=== PATIENT | male | born 1980 | race Caucasian/White ===

== ENCOUNTER 2021-03-20 19:16 | Inpatient (IN) | payer BC, SELFPAY ==
[2021-03-20] VITALS (8 sets, daily range): BP systolic 120–151; BP diastolic 80–91; PULSE 110–132; RESP 22–39; TEMP 37.6; O2SAT 87–95
--- NOTE | ~2021-03-20 | XR_ITS ---
EXAMINATION: XR chest 1V portable DATE: 03/20/2021 21:48 INDICATION: Shortness of breath. Fever and chills. COVID-19 positive. TECHNIQUE: A single frontal view of the chest was obtained. COMPARISON: None. FINDINGS: There are patchy airspace opacities in all lung zones bilaterally with relative sparing of left lung apex. No pleural effusion or pneumothorax. The heart size is normal. IMPRESSION: 1. Diffuse lung disease, consistent with COVID-19 pneumonia. Reviewed, dictated and finalized at location A. TAL MARKETING OFFICER
--- NOTE | ~2021-03-20 | XR_ITS ---
EXAMINATION: XR chest 1V portable DATE: 03/27/2021 15:54 INDICATION: Pneumonia and cough TECHNIQUE: frontal view of the chest was obtained. COMPARISON: Chest radiograph dated 03/23/2021 FINDINGS: There is been some interval decrease in the patchy airspace opacities in the bilateral mid and lower lung zones which appear to have coalesced into more thickened bandlike opacities. No new airspace opa cities, pleural effusion or pneumothorax. The cardiomediastinal silhouette is normal. Visualized bone s and soft tissues are unremarkable. IMPRESSION: 1. Continued decrease in bilateral airspace opacity, likely improving COVID pneumonia. Reviewed, dictated and finalized at location B. UM PAN OPERATOR IMPRESSION: 1. Continued decrease in bilateral airspace opacity, likely improving COVID pne umonia.
--- NOTE | ~2021-03-20 | CT_ITS ---
EXAMINATION: CTA chest PE protocol DATE: 03/20/2021 23:16 INDICATION: Shortness of breath. COVID-19 pneumonia. TECHNIQUE: Computed tomography angiography (CTA) of the chest was performed with 100 mL Omnipaque-350 intravenous contrast timed to evaluate the pulmonary arteries. Coronal maximum intensity projection 3D-reconstructions were created by the technologist. Automated exposure control and iterative reconst ruction technique were employed. The dose-length product was 577.82 mGy-cm. COMPARISON: Chest single view 03/20/2021 FINDINGS: There are patchy airspace and groundglass opacities involving all lobes. No pleural effusio n. The heart size is normal. No pericardial effusion. There is mild mediastinal lymphadenopathy. Ther e is no pulmonary embolus. There is mild thoracic spondylosis. There is a benign bone island in T3 ve rtebral body. IMPRESSION: 1. No pulmonary embolus. Sensitivity is mildly decreased by motion artifact. 2. Diffuse lung disease, consistent with COVID-19 pneumonia. 3. Mild mediastinal lymphadenopathy, likely reactive. Reviewed, dictated and finalized at location A. BALANCER
--- NOTE | ~2021-03-20 | XR_ITS ---
EXAMINATION: XR chest 1V portable DATE: 03/23/2021 09:11 INDICATION: COVID TECHNIQUE: frontal view of the chest was obtained. COMPARISON: Chest radiograph and CT dated 03/20/2021 FINDINGS: Again seen are bilateral patchy airspace opacities which appear slightly improved compared with the p rior study. No pleural effusion or pneumothorax. The cardiomediastinal silhouette is within normal li mits for AP technique. IMPRESSION: 1. Slight improvement in bilateral patchy airspace opacities likely related to COVID pneumonia. Reviewed, dictated and finalized at location A. STITCH TOPSTITCHER
--- NOTE | 2021-03-20 21:31 | ECG_ITS ---
Measurements Intervals [place] Rate: 126 P: 20 WI: 114 QRS: 28 QRSD: 76 T: -5 QT: 276 QTc: 400 Interpretive Statements SINUS TACHYCARDIA WITH SHORT WI INTERVAL BORDERLINE T WAVE ABNORMALITY- ANTEROLAT/INF LEADS BASELINE ARTIFACT- II, III, AVF ABNORMAL ECG Electronically Signed On 03-21-2021 6:33:43 DRY WALL INSTALLATIONS MECHANIC by Riky Kim D.O.
--- NOTE | 2021-03-20 21:43 | ED.SOB ---
HPI - SOB/Dyspnea General Chief Complaint: Shortness of Breath/Dyspnea Stated Complaint: Covid +....SOB Time Seen by Provider: 03/20/21 21:40 Source: patient Mode of arrival: ambulatory Limitations: no limitations History of Present Illness HPI Narrative: Patient is a 41-year-old male complaining of shortness of breath accompanied by cough, fever, body aches that started 1 week ago. Patient states that he tested positive for Covid this past Thursday was seen and treated at [facility], was discharged on oral antibiotic and steroid. Patient states that his symptoms is worse today especially his shortness of breath. Related Data Home Medications Medication Instructions Recorded Confirmed Lexapro 03/20/21 Allergies Allergy/AdvReac Type Severity Reaction Status Date / Time No Known Allergies Allergy Verified 03/20/21 19:54 Review of Systems Review of Systems: All systems reviewed & are unremarkable except as noted in HPI and below Constitutional: Constitutional: Denies excessive sweating, Denies fatigue, Denies headache(s), Denies lethargy, Denies weakness and Denies weight loss Eyes: Eyes: Denies blurry vision, Denies change in vision and Denies loss of vision ENT: Denies dizziness, Denies ear discharge, Denies headache(s), Denies lip swelling, Denies epistaxis, Denies nasal congestion, Denies neck pain, Denies throat swelling and Denies tongue swelling Cardiovascular: Cardiovascular: Denies chest pain, Denies chest pain at rest, Denies chest pain with activity, Denies diaphoresis, Denies rapid heart rate, Denies edema, Denies irregular heart rhythm, Denies lightheadedness and Denies palpitations Respiratory: Respiratory: Denies chest congestion and Denies hemoptysis Gastrointestinal: Gastrointestinal: Denies abdominal pain, Denies melena, Denies hematochezia, Denies diarrhea, Denies nausea, Denies vomiting and Denies hematemesis Musculoskeletal: Musculoskeletal: Denies abnormal gait, Denies deformity, Denies joint swelling, Denies limited range of motion, Denies neck pain and Denies numbness Neurologic: Denies Abnormal speech present, Denies abnormal gait, Denies confusion, Denies dizziness, Denies headache(s), Denies focal weakness, Denies loss of vision, Denies numbness, Denies Other visual disturbances, Denies Sensory deficit (Neuro) and Denies weakness Psychiatric: Psychiatric: Denies confusion, Denies depression, Denies auditory hallucinations, Denies homicidal ideation and Denies suicidal ideation Endocrine: Endocrine: Denies cold intolerance, Denies excessive sweating, Denies fatigue, Denies heat intolerance and Denies palpitations Hematologic/Lymphatic: Hematologic/Lymphatic: Denies easy bleeding and Denies easy bruising Allergic/Immunologic: Allergic/Immunologic: Denies lip swelling, Denies throat swelling and Denies tongue swelling Exam Const: General: ill appearing Orientation/consciousness: oriented to person, oriented to place, oriented to time, patient oriented x3 and No confusion Limitations: no limitations Other: Moderate distress HENMT: Head: normal to inspection, normocephalic and atraumatic Ears: hearing grossly normal bilaterally, TM normal on the right and TM normal on the left General nose exam: Normal external nose present, Normal nares present and No nasal discharge present Face and sinus: normal facial exam Mouth: Yes Normal oral and palatal mucosa present, Yes lip normal, Yes tongue normal and Yes oropharynx normal Throat: posterior oropharynx normal, tonsils normal and uvula midline Eyes: General: appearance normal, both eyes and all related structures Pupils: Equal, round and reactive pupils present EOM: EOMs intact bilaterally Neck: Neck: normal visual inspection, full ROM, no lymphadenopathy and no meningeal signs Chest: Chest palpation & inspection: normal inspection of the chest Resp: Effort & Inspection: normal respiratory effort and able to speak in complete sentences Auscultatio
[2021-03-20] MEDS: ALBUTEROL SULFATE NEB 2.5 MG/0.5 ML INH 5 MG INHALATION (21:56)
[2021-03-20] MEDS: IPRATROPIUM BR 0.02% INH SOLN 0.5 MG/2.5 ML VIAL INHALATION (21:56)
[2021-03-20 22:05] LABS: Base Excess ABG 0.5 mEq/l (+/-2.0); Fractional Inspired Oxygen 40 %; HCO3 ABG 22.5 mEq/l (22.0-26.0); Methemoglobin ABG 0.2 %THb (0-1.5); Oxygen Content ABG 18.1 %vol (16.0-22.0); Oxyhemoglobin 90.1 % THb (90.0-100.0); PCO2 ABG 29.3 mmHg (35.0-45.0); PO2 ABG 53.5 mmHg (80.0-100.0); PO2 FiO2 Ratio Arterial Blood 1.34 %; Reduced Hemoglobin 9.7 %THb (0-5.0); Total Hemoglobin 14.3 g/dL (12.0-18.0)
[2021-03-20 22:06] LABS: Device NASAL CANNULA; Modified Allen's Test Pass; Site Drawn LEFT RADIAL; pH ABG 7.503 (7.350-7.450)
[2021-03-20] MEDS: DEXAMETHASONE SOD PHOS INJ 4 MG/ML VIAL 10 MG IV PUSH (22:11)
[2021-03-20 22:18] LABS: Basophils Percent Auto 0.1 % (0.2-1.2); Hematocrit 43.2 % (42.0-52.0); Hemoglobin 14.4 g/dL (14.0-18.0); Immature Granulocyte Absolute 0.11 K/mm3 (0.00-0.031); Immature Granulocyte Percent A 0.8 % (0-0.5); Lymphocytes Absolute Auto 0.52 K/mm3 (0.9-3.2); Lymphocytes Percent Auto 3.9 % (18.3-44.2); Mean Corpuscular HGB Conc 33.3 g/dl (32-36); Mean Corpuscular Hemoglobin 30.7 pg (26-34); Mean Corpuscular Volume 92.1 fl (80-100); Mean Platelet Volume 8.6 fl (7.4-10.4); Monocytes Absolute Auto 0.6 K/mm3 (0.1-0.6); Monocytes Percent Auto 4.5 % (2.6-8.5); Neutrophils Absolute Auto 12.2 K/mm3 (1.3-6.7); Neutrophils Percent Auto 90.7 % (45.5-73.1); Platelet Count Result 368 k/mm3 (150-375); Red Blood Count 4.69 M/mm3 (4.6-6.20); Red Cell Distribution Width 12.6 % (11.5-14.5); White Blood Count 13.5 K/mm3 (4.5-10.0)
[2021-03-20 22:31] LABS: Alanine Aminotransferase 81 U/L (4-50); Albumin Level 4.3 g/dL (3.5-5.1); Alkaline Phosphatase 68 U/L (38-126); Anion Gap 13 mmol/L (8-16); Aspartate Amino Transferase 72 U/L (17-59); Bilirubin,Total 0.4 mg/dL (0.2-1.3); Blood Urea Nitrogen 17 mg/dL (9-20); Calcium 9.3 mg/dL (8.4-10.2); Carbon Dioxide 25 mmol/L (22-30); Chloride 100 mmol/L (98-107); Estimated CRCL calculation 88 ml/min; Estimated Glomerular Filt Rate > 60; Glucose 118 mg/dL (65-110); Potassium 4.1 mmol/L (3.4-5.0); Sodium 138 mmol/L (137-145)
[2021-03-20 22:31] LABS: Prothrombin Time 12.6 Seconds (11.1-14.7)
[2021-03-20 22:32] LABS: Partial Thromboplastin Time 30.9 SECONDS (22.3-36.8)
[2021-03-20 22:34] LABS: Lactic Acid Reflex 2.4 mmol/L (0.7-2.1)
[2021-03-20 22:35] LABS: D Dimer 0.74 ug/mL (<0.48)
[2021-03-20 22:40] LABS: NT Pro B Type Natriuretic Pept 403 pg/mL (5-100)
[2021-03-20] MEDS: ACETAMINOPHEN 325 MG TABLET 650 MG PO (22:52)
[2021-03-20] MEDS: LACTATED RINGERS 1,000 ML 150 ML IV CONT (22:53)
[2021-03-20] MEDS: ONDANSETRON INJ 4 MG/2 ML VIAL IV PUSH (22:53)
[2021-03-21] VITALS (12 sets, daily range): BP systolic 115–133; BP diastolic 70–86; PULSE 80–109; RESP 18–39; TEMP 36.3–37.1; O2SAT 81–97; BMI 34.4
[2021-03-21 01:15] LABS: Reflex Lactic Acid Yes or No Add Lactic
--- NOTE | 2021-03-21 02:15 | ADMGEN ---
This patient, Jono Craven, was admitted to [facility] Surg Room 320-01. Patient/family oriented to hospital policies and general routines including ID bracelet, bed and alarms, visiting hours, pain management, procedures, bathroom and other care routines, personal items, smoking policy, room service/diet, and visiting hours. Information on how to activate the Rapid Response Team has been discussed. Patient/Family are encouraged to report perceived risks to care and to ask questions if they do not understand what they are told or what they should do.
--- NOTE | 2021-03-21 02:15 | PM.IMHP ---
H&P: HPI History of Present Illness Date/Time: 03/21/21 02:15 Chief Complaint: COVID shortness of breath Narrative: Patient is a 41-year-old male who presents to the ED today with the worsening shortness of breath. He states that he started getting sick about a week ago with cough fever body aches. He went to [facility] ER where he was tested positive for COVID and was sent home on oral antibiotic and steroid. He has been taking those medication however his symptoms continued to get worse with worsening shortness of breath and hence came to the ED for evaluation. He reports mild on and off fever cough with clear expect duration. He also reports loss of taste. In the ED evaluation he was noted to have mild leukocytosis of 13.5 elevated D-dimer elevated lactic acidosis at 2.4 mildly elevated transaminases and elevated BNP at 4:03 a.m.. ABG showed respiratory alkalosis he was noted to be hypoxic in low 80s on room air on arrival to the ED and was placed on 4 L oxygen and maintain his oxygen saturation at 90-94%. He had been given DuoNeb treatment and Decadron 10 mg IV which relieved his shortness of breath. Because of his elevated D-dimer a CTA was done which was negative for PE but positive for diffuse lung disease consistent with COVID pneumonia. Given the setting is admitted for further evaluation and management. Review of Systems Review of Systems: - CONSTITUTIONAL: Denies weight loss, reports fever and chills. - HEENT: Denies changes in vision and hearing - RESPIRATORY: Reports SOB and cough. - CV: Denies palpitations and CP. - GI: Denies abdominal pain, nausea, vomiting and diarrhea. - : Denies dysuria and urinary frequency. - MSK: Reports myalgia and denies joint pain. - SKIN: Denies rash and pruritus. - NEUROLOGICAL: Reports headache and denies syncope. - PSYCHIATRIC: Denies recent changes in mood. Denies anxiety and depression. All systems reviewed & are unremarkable except as noted in HPI and below Constitutional: Constitutional: Reports fatigue and Reports weakness Neurologic: Reports weakness Endocrine: Endocrine: Reports fatigue Meds Home Medications and Allergies Home Medications Medication Instructions Recorded Confirmed Type Lexapro 03/20/21 History Allergies Allergy/AdvReac Type Severity Reaction Status Date / Time No Known Allergies Allergy Verified 03/20/21 19:54 Vital Signs Vital Signs - 24 hr 03/20/21 19:20 03/20/21 19:49 03/20/21 21:29 Temperature 99.7 F H Pulse Rate 115 H 110 H Respiratory Rate 26 H Blood Pressure 147/83 H Pulse Oximetry 87 L 93 03/20/21 21:30 03/20/21 22:00 03/20/21 22:10 Temperature Pulse Rate 110 H 117 H 132 H Respiratory Rate 22 H 26 H 39 H Blood Pressure 151/91 H 120/80 Pulse Oximetry 93 95 03/20/21 22:14 03/20/21 22:53 03/21/21 00:20 Temperature Pulse Rate 127 H 126 H 109 H Respiratory Rate 33 H 28 H 25 H Blood Pressure 144/82 H 130/80 Pulse Oximetry 90 93 03/21/21 01:12 Temperature Pulse Rate 101 H Respiratory Rate 39 H Blood Pressure 121/83 Pulse Oximetry 93 Exam Narrative: GENERAL: The patient is well developed, not in acute distress HEENT: Nonicteric sclerae, PERRLA, EOMI. Oropharynx clear. Moist mucous membranes. Conjunctivae appear well perfused. CHEST: Chest wall is nontender. HEART: Regular rate and rhythm without murmur, rubs, or gallops LUNGS: Coarse breath sounds bilaterally. Mildly tachypneic ABDOMEN: Soft, positive bowel sounds, non-tender, no organomegaly. SKIN: No rash, no excessive bruising, petechiae, or purpura. NEUROLOGIC: Cranial nerves II-XII intact, alert and oriented x 3, no gross motor deficits EXTREMITIES: no edema, cyanosis or clubbing H&P: Results Labs Labs: Short CBC 03/20/21 Range/Units 22:07 WBC 13.5 H (4.5-10.0) K/mm3 Hgb 14.4 (14.0-18.0) g/dL Hct 43.2 (42.0-52.0) % Plt Count 368 (150-375) k/mm3 [facility] 03/20/21 22:07 Sodium 138
[2021-03-21 02:38] LABS: Lactic Acid 1.5 mmol/L (0.7-2.1)
[2021-03-21] MEDS: REMDESIVIR 200 MG/NS 250 ML 200 MG/250 ML BAG 250 MG IVPB (03:35)
[2021-03-21 03:41] LABS: Lactic Acid Reflex 1.7 mmol/L (0.7-2.1)
[2021-03-21 03:46] LABS: Alanine Aminotransferase 91 U/L (4-50); Estimated CRCL calculation 98 ml/min; Estimated Glomerular Filt Rate > 60; Lactate Dehydrogenase 959 U/L (313-618)
[2021-03-21 04:01] LABS: CRP 20.5 mg/dL (<1.0)
[2021-03-21] MEDS: ACETAMINOPHEN 325 MG TABLET 650 MG PO ×3 (04:58→18:00)
[2021-03-21] MEDS: ENOXAPARIN 40 MG/0.4 ML SYRINGE SUB-Q (09:46)
--- NOTE | 2021-03-21 15:23 | PM.IMPN ---
Progress Note: A&P Assessment and Plan (1) Acute respiratory failure with hypoxemia: Code(s): J96.01 - Acute respiratory failure with hypoxia Status: Acute Assessment and Plan: Secondary to COVID-19 pneumonia. He is requiring 14 L per high-flow nasal cannula. CTA is negative for PE but does show diffuse lung disease consistent with COVID 19 pneumonia. Supplemental O2 as needed with goal saturations 92% or above. If he has worsened oxygen requirements, would need to transition to Airvo or BiPAP Patient is agreeable to intubation should this become necessary (2) Pneumonia due to COVID-19 virus: Code(s): U07.1 - COVID-19; J12.82 - Pneumonia due to coronavirus disease 2018 Status: Acute Assessment and Plan: Patient tested positive for COVID-19 on 03/16/2021 at [facility]. CXR shows diffuse lung disease. Continue supplemental O2 as described above Dexamethasone and remdesivir being continued. Given increased O2 demand, will add Baricitinib Monitor CBC, LFTs, renal function while on above therapy Supportive care to include bronchodilators, expectorants, antipyretics, incentive spirometry Trend inflammatory markers Patient has not been vaccinated for COVID-19 Will proceed with confirmatory COVID-19 test at this facility (3) Lactic acidosis: Code(s): E87.2 - Acidosis Status: Acute Assessment and Plan: Lactic acid levels elevated 2.4 on presentation. Likely related to dehydration from acute illness. He did receive 1 L of IV fluids. Lactic acid has normalized since. No further IV fluids as the patient appears euvolemic and is tolerating oral intake. (4) Leukocytosis: Code(s): D72.829 - Elevated white blood cell count, unspecified Status: Acute Assessment and Plan: Likely secondary to recent steroid use. He was prescribed a course of steroids at outside hospital upon diagnosis of COVID-19. Subjective Date/time seen: 03/21/21 15:23 Interval history: Date of service: 03/21/2021 Jono Craven is 41-year-old male with no prior medical history who is seen in follow-up for COVID-19 pneumonia. He is feeling a little bit better today than compared to presentation but overall still feeling poorly. He endorses shortness of breath and dyspnea on exertion. He is having difficulty getting up and walking to the bathroom. He has a mild cough productive of clear sputum. Denies nausea, vomiting, fever, chills, dizziness, lightheadedness. His appetite is poor and he has lost his sense of taste and smell. He reports that he is drinking fluids. He is feeling a little bit anxious today. He denies chest pain or palpitations. He has a mild headache. Denies body aches. Review of Systems Review of Systems: All systems reviewed & are unremarkable except as noted in HPI and below Exam Narrative: Mr. Craven is a well-nourished, well-appearing 41-year-old male who is lying semi recumbent in bed. He appears comfortable and is in NARD. Neuro: awake, alert and oriented x4, speech clear, no focal neuro deficits noted HEENMT: normocephalic, atraumatic, EOMI, sclerae anicteric, moist oral mucosa Neck: supple, no lymphadenopathy Respiratory: Diminished breath sounds bilaterally, nonlabored breathing, no accessory muscle use, able to speak in complete sentences Cardio: regular rate, regular rhythm with S1-S2 Abdomen: nondistended, normoactive bowel sounds, soft, nontender to palpation Extremities: no edema, erythema, or tenderness to palpation, DP pulses 2+ bilaterally Skin: no rashes or lesions, warm and dry Psych: appropriate mood and affect, judgment and insight intact Objective Data Vital Signs Vital Signs: Vital Signs - 24 hr 03/20/21 19:20 03/20/21 19:49 03/20/21 21:29 Temperature 99.7 F H Pulse Rate 115 H 110 H Respiratory Rate 26 H Blood Pressure 147/83 H Pulse Oximetry 87 L 93 03/20/21 21:30 03/20/21 22:00 03/20/21
[2021-03-21 15:50] LABS: Hematocrit 41.5 % (42.0-52.0); Hemoglobin 13.8 g/dL (14.0-18.0); Mean Corpuscular HGB Conc 33.3 g/dl (32-36); Mean Corpuscular Hemoglobin 30.8 pg (26-34); Mean Corpuscular Volume 92.6 fl (80-100); Mean Platelet Volume 8.4 fl (7.4-10.4); Platelet Count Result 395 k/mm3 (150-375); Red Blood Count 4.48 M/mm3 (4.6-6.20); Red Cell Distribution Width 12.7 % (11.5-14.5); White Blood Count 14.3 K/mm3 (4.5-10.0)
[2021-03-21 16:00] LABS: Alanine Aminotransferase 120 U/L (4-50); Aspartate Amino Transferase 95 U/L (17-59); Estimated CRCL calculation 98 ml/min; Estimated Glomerular Filt Rate > 60
[2021-03-21 16:06] LABS: Band Neutrophils Percent 3 % (0-6); Lymphocytes Absolute Manual 0.57 K/mm3 (1.1-4.5); Monocytes Absolute Manual 0.57 K/mm3 (0.1-0.90); Monocytes Percent Manual 4 % (3-9); Neutrophils Absolute Manual 13.15 K/mm3 (1.3-6.7); Neutrophils Percent Manual 89 % (46-73); Platelet Estimate Increased (Adequate); Total Cells Counted 100
[2021-03-21] MEDS: BARICITINIB 2 MG TABLET 4 MG PO (16:26)
[2021-03-21] MEDS: ESCITALOPRAM OXALATE 10 MG TABLET PO (16:27)
--- NOTE | 2021-03-21 23:35 | PM.EVENT ---
Event Note Event Note Event Note: The patient continued to desat even on 15 L non-rebreather and oxygen per nasal cannula. The patient stated that he coughed a lot and had a lot of thick phlegm. He believes this made him more short of breath. However at best his oxygen is between 89 and 90%. I spoke with the patient and feel that it is best to move him to IMU for an Airvo. I explained that he needs to self prone frequently. The patient is already on remdesivir and Decadron. Will add Mucinex if not already ordered.
[2021-03-22] VITALS (17 sets, daily range): BP systolic 111–125; BP diastolic 73–78; PULSE 68–92; RESP 20–24; TEMP 36.1–37.2; O2SAT 91–99
--- NOTE | 2021-03-22 02:53 | PC.NURSE ---
Patient transferred to IMU Room 213 @ [id number]. All belongings transferred with patient. Patient stated to on call pharmacy technician to notify in the morning with updates.
--- NOTE | 2021-03-22 03:19 | PC.NURSE ---
Recieved report from [facility] at 0150. Patient arrived to the floor in room 213 at 0230
--- NOTE | 2021-03-22 03:23 | PC.NURSE ---
This patient, Jono Craven, was received from [[address] [place] [address]] on 03/22/21 at 0230. Patient/family oriented to unit policies and routines
[2021-03-22] MEDS: ACETAMINOPHEN 325 MG TABLET 650 MG PO ×3 (03:42→17:40)
[2021-03-22 05:44] LABS: Basophils Percent Auto 0.2 % (0.2-1.2); Hematocrit 39.1 % (42.0-52.0); Hemoglobin 13.1 g/dL (14.0-18.0); Immature Granulocyte Absolute 0.15 K/mm3 (0.00-0.031); Lymphocytes Absolute Auto 0.59 K/mm3 (0.9-3.2); Mean Corpuscular HGB Conc 33.5 g/dl (32-36); Mean Corpuscular Hemoglobin 30.2 pg (26-34); Mean Corpuscular Volume 90.1 fl (80-100); Mean Platelet Volume 8.7 fl (7.4-10.4); Monocytes Absolute Auto 0.8 K/mm3 (0.1-0.6); Monocytes Percent Auto 5.7 % (2.6-8.5); Neutrophils Percent Auto 89.1 % (45.5-73.1); Platelet Count Result 433 k/mm3 (150-375); Red Blood Count 4.34 M/mm3 (4.6-6.20); Red Cell Distribution Width 12.5 % (11.5-14.5); White Blood Count 14.6 K/mm3 (4.5-10.0)
[2021-03-22 05:48] LABS: INR 1.1; Prothrombin Time 13.7 Seconds (11.1-14.7)
[2021-03-22 06:01] LABS: Alanine Aminotransferase 133 U/L (4-50); Albumin Level 3.9 g/dL (3.5-5.1); Alkaline Phosphatase 64 U/L (38-126); Anion Gap 10 mmol/L (8-16); Aspartate Amino Transferase 95 U/L (17-59); Bilirubin,Total 0.4 mg/dL (0.2-1.3); Blood Urea Nitrogen 27 mg/dL (9-20); CRP 8.5 mg/dL (<1.0); Calcium 8.8 mg/dL (8.4-10.2); Carbon Dioxide 25 mmol/L (22-30); Chloride 103 mmol/L (98-107); Estimated CRCL calculation 98 ml/min; Estimated Glomerular Filt Rate > 60; Glucose 139 mg/dL (65-110); Potassium 4.3 mmol/L (3.4-5.0); Sodium 138 mmol/L (137-145)
[2021-03-22] MEDS: ESCITALOPRAM OXALATE 10 MG TABLET PO (08:50)
[2021-03-22] MEDS: BARICITINIB 2 MG TABLET 4 MG PO (08:50)
[2021-03-22] MEDS: ENOXAPARIN 40 MG/0.4 ML SYRINGE SUB-Q (08:50)
--- NOTE | 2021-03-22 09:47 | PM.IMPN ---
Progress Note: A&P Assessment and Plan (1) Acute respiratory failure with hypoxemia: Code(s): J96.01 - Acute respiratory failure with hypoxia Status: Acute Assessment and Plan: Secondary to COVID-19 pneumonia. He is requiring 50% per high-flow nasal cannula.Arivo. CTA is negative for PE but does show diffuse lung disease consistent with COVID 19 pneumonia. Supplemental O2 as needed with goal saturations 92% or above. on Mucinex, Albuterol inhaler, on Baricitinib, Dexamethasone, Remdesivir. Glucose level today was 139. Check A1C in morning. If he has worsened oxygen requirements, would need to transition to BiPAP Patient is agreeable to intubation should this become necessary (2) Pneumonia due to COVID-19 virus: Code(s): U07.1 - COVID-19; J12.82 - Pneumonia due to coronavirus disease 2018 Status: Acute Assessment and Plan: Patient tested positive for COVID-19 on 03/16/2021 at [facility]. 03/20 CXR shows diffuse lung disease. Repeating CXR in the morning. Continue supplemental O2 as described above Dexamethasone and remdesivir being continued. Given increased O2 demand, will add Baricitinib Monitor CBC, LFTs, renal function while on above therapy Supportive care to include bronchodilators, expectorants, antipyretics, incentive spirometry Trend inflammatory markers Patient has not been vaccinated for COVID-19 Will proceed with confirmatory COVID-19 test at this facility (3) Lactic acidosis: Code(s): E87.2 - Acidosis Status: Acute Assessment and Plan: Lactic acid levels elevated 2.4 on presentation. Likely related to dehydration from acute illness. did receive 1 L of IV fluids. Lactic acid has normalized since. No further IV fluids as the patient appears euvolemic and is tolerating oral intake. RESOLVED. (4) Leukocytosis: Code(s): D72.829 - Elevated white blood cell count, unspecified Status: Acute Assessment and Plan: Likely secondary to recent steroid use. He was prescribed a course of steroids at outside hospital upon diagnosis of COVID-19. WBC 14.6 today, 14.3 yesterday. Stable. Additional Plan # acute hypoxic respiratory failure related to COVID pneumonia CTA negative for PE continue oxygen supplementation # bilateral COVID pneumonia Decadron and remdesivir ordered continue to monitor LFTs check inflammatory markers # equal cytosis recently was treated with steroid likely reason for it unlikely bacterial infection # lactic acidosis poor p.o. intake and dehydration related likely IV hydration. Fluid after 1 L recheck lactic acid level # elevated D-dimer CTA negative for PE likely due to COVID pneumonia # DVT prophylaxis Lovenox # full code status Subjective Date/time seen: 03/22/21 09:47 Interval history: Date of service: 03/22/2021 Jono Craven is 41-year-old male with no prior medical history who is seen in follow-up for COVID-19 pneumonia. He is feeling a little bit better today, sats 90-100% but still requiring 50% HF O2. He said that he was able to eat better today, pacing himself during meals to avoid dyspnea. He continues to have significant shortness of breath and dyspnea on exertion, even a short trip to the bathroom is too much. He continues to have a mild cough productive of clear sputum. Denies nausea, vomiting, fever, chills, dizziness, lightheadedness. His appetite is poor and he has lost his sense of taste and smell. He denies chest pain or palpitations. Denies body aches. He felt after his 2nd dose of IV antivirals today, that he was feeling like he had more energy this afternoon. Ordered daily ferritin, CRP, LDH levels with a CXR in the morning. Checking A1C in morning as well, no history of DM, glucose levels likely from Dexamethasone. Review of Systems Review of Systems: All systems reviewed & are unremarkable except as noted in HPI and below Constitutional: Constitutional: Reports as per HP
[2021-03-22] MEDS: REMDESIVIR 100 MG/NS 250 ML 100 MG/250 ML BAG 250 MG IVPB (10:44)
[2021-03-22 17:55] LABS: SARS-CoV-2 RNA PCR Positive
[2021-03-22] MEDS: guaiFENesin 12 HR 600 MG TABCR PO (22:32)
[2021-03-22] MEDS: ALBUTEROL SULFATE (*SP) INHALER 2 PUFF INHALATION (23:07)
[2021-03-23] VITALS (18 sets, daily range): BP systolic 104–126; BP diastolic 65–79; PULSE 60–86; RESP 18–24; TEMP 35.9–37.3; O2SAT 90–100
--- NOTE | 2021-03-23 01:51 | PC.NURSE ---
Pt stated during midnight rounds that he couldn't sleep due to the pressure from his hiflow therapy oxygen. Explained that the RT stated that nothing had changed as far as the pressure, and that he needed the pressure to keep his oxygen up. Also counseled pt to sleep on his stomach if at all possible or at least on his side. Called doctor to obtain order for melatonin to help pt sleep. Went into room at 0115 to admin melatonin, but pt was already asleep. Did not disturb patient at this time.
[2021-03-23] MEDS: ALBUTEROL SULFATE (*SP) INHALER 2 PUFF INHALATION ×4 (08:35→20:47)
[2021-03-23] MEDS: guaiFENesin 12 HR 600 MG TABCR PO ×2 (08:37→20:46)
[2021-03-23] MEDS: BARICITINIB 2 MG TABLET 4 MG PO (08:38)
[2021-03-23] MEDS: ESCITALOPRAM OXALATE 10 MG TABLET PO (08:39)
[2021-03-23] MEDS: ENOXAPARIN 40 MG/0.4 ML SYRINGE SUB-Q ×2 (08:39→20:46)
[2021-03-23 10:05] LABS: Alanine Aminotransferase 163 U/L (4-50); Anion Gap 12 mmol/L (8-16); Aspartate Amino Transferase 85 U/L (17-59); Blood Urea Nitrogen 28 mg/dL (9-20); CRP 5.7 mg/dL (<1.0); Calcium 8.6 mg/dL (8.4-10.2); Carbon Dioxide 20 mmol/L (22-30); Chloride 101 mmol/L (98-107); Estimated CRCL calculation 98 ml/min; Estimated Glomerular Filt Rate > 60; Glucose 116 mg/dL (65-110); Lactate Dehydrogenase 1321 U/L (313-618); Potassium 4.4 mmol/L (3.4-5.0); Sodium 133 mmol/L (137-145)
[2021-03-23 10:31] LABS: Basophils Percent Auto 0.2 % (0.2-1.2); Hematocrit 42.7 % (42.0-52.0); Hemoglobin 14.2 g/dL (14.0-18.0); Immature Granulocyte Percent A 1.6 % (0-0.5); Lymphocytes Percent Auto 4.7 % (18.3-44.2); Mean Corpuscular HGB Conc 33.3 g/dl (32-36); Mean Corpuscular Hemoglobin 30.6 pg (26-34); Mean Platelet Volume 8.6 fl (7.4-10.4); Monocytes Absolute Auto 0.9 K/mm3 (0.1-0.6); Neutrophils Absolute Auto 11.2 K/mm3 (1.3-6.7); Neutrophils Percent Auto 86.5 % (45.5-73.1); Platelet Count Result 467 k/mm3 (150-375); Red Blood Count 4.64 M/mm3 (4.6-6.20); Red Cell Distribution Width 12.4 % (11.5-14.5); White Blood Count 12.9 K/mm3 (4.5-10.0)
[2021-03-23 10:45] LABS: Prothrombin Time 13.4 Seconds (11.1-14.7)
--- NOTE | 2021-03-23 10:57 | PM.IMPN ---
Progress Note: A&P Assessment and Plan (1) Acute respiratory failure with hypoxemia: Code(s): J96.01 - Acute respiratory failure with hypoxia Status: Acute Assessment and Plan: Secondary to COVID-19 pneumonia. He is requiring 50% per high-flow nasal cannula.Arivo. CTA is negative for PE but does show diffuse lung disease consistent with COVID 19 pneumonia. Supplemental O2 as needed with goal saturations 92% or above. on Mucinex, Albuterol inhaler, on Baricitinib, Dexamethasone, Remdesivir. Date 3 Glucose level today was 139. Check A1C in morning. If he has worsened oxygen requirements, would need to transition to BiPAP Reviewed chest x-ray from held 03/23/2021 showed improvement in COVID-19 pneumonia Will give trial of IV Lasix (2) Pneumonia due to COVID-19 virus: Code(s): U07.1 - COVID-19; J12.82 - Pneumonia due to coronavirus disease 2018 Status: Acute Assessment and Plan: Patient tested positive for COVID-19 on 03/16/2021 at [facility]. 03/20 CXR shows diffuse lung disease. Repeating CXR in the morning. Continue supplemental O2 as described above Dexamethasone and remdesivir being continued. Given increased O2 demand, will add Baricitinib Continue supportive therapy (3) Lactic acidosis: Code(s): E87.2 - Acidosis Status: Acute Assessment and Plan: Lactic acid levels elevated 2.4 on presentation. Probably related to sepsis secondary to COVID-19 pneumonia Present on admission RESOLVED. (4) Leukocytosis: Code(s): D72.829 - Elevated white blood cell count, unspecified Status: Acute Assessment and Plan: Likely secondary to recent steroid use. Monitor Subjective Date/time seen: 03/23/21 10:57 Interval history: Jono Craven is 41-year-old male with no prior medical history who is seen in follow-up for COVID-19 pneumonia. Patient feels about the same y, sats 90-100% but still requiring 50% HF O2. Patient currently on dexamethasone remdisver barcitinib. Prognosis guarded Patient still complaining of shortness of breath and cough denies fever or chills I have seen patient for COVID-19 infection Exam Narrative: Alert On oxygen Chest decreased air entry bilateral positive crackles Abdomen nontender nondistended CVS S1 + S2 Lower extremity minimal edema Objective Data Vital Signs Vital Signs: Vital Signs - 24 hr 03/22/21 11:41 03/22/21 12:00 03/22/21 14:00 Temperature 98.8 F Pulse Rate 84 80 71 Respiratory Rate 20 Blood Pressure 122/78 Pulse Oximetry 99 94 03/22/21 16:00 03/22/21 17:17 03/22/21 18:00 Temperature 98.6 F Pulse Rate 71 73 80 Respiratory Rate 22 H Blood Pressure 117/78 Pulse Oximetry 94 91 03/22/21 19:48 03/22/21 20:00 03/22/21 22:00 Temperature 98.6 F Pulse Rate 68 72 81 Respiratory Rate 20 Blood Pressure 120/77 Pulse Oximetry 97 03/22/21 22:30 03/23/21 00:00 03/23/21 00:15 Temperature 97.6 F Pulse Rate 73 Respiratory Rate 22 H Blood Pressure 114/74 Pulse Oximetry 97 91 90 03/23/21 02:00 03/23/21 04:00 03/23/21 06:00 Temperature 97.2 F L Pulse Rate 67 86 82 Respiratory Rate 24 H Blood Pressure 118/76 Pulse Oximetry 90 03/23/21 08:00 03/23/21 08:52 03/23/21 08:57 Temperature 97.6 F Pulse Rate 68 Respiratory Rate 22 H Blood Pressure 122/76 Pulse Oximetry 90 91 95 Intake/Output Intake/Output: Intake & Output 03/20/21 03/21/21 03/22/21 03/23/21 23:59 23:59 23:59 23:59 Intake Total 2340 1070 850 Output Total 2600 925 300 Balance -260 145 550 Meds/Results Medications: Active Medications Generic Name Dose Route Start Last Admin Trade Name Freq PRN Reason Stop Dose Admin Acetaminophen 650 mg 03/21/21 02:24 03/22/21 17:40 Acetaminophen 325 Mg Tablet PO 650 mg Q6H PRN Administration Mild Pain (1-3) or Fever Albuterol 2 puff 03/22/21 23:05 03/23/21 08:35 Albuterol Sulfa
[2021-03-23 11:34] LABS: Hemoglobin A1C 5.8 % (<5.7)
[2021-03-23] MEDS: REMDESIVIR 100 MG/NS 250 ML 100 MG/250 ML BAG 250 MG IVPB (13:08)
[2021-03-24] VITALS (19 sets, daily range): BP systolic 112–125; BP diastolic 60–80; PULSE 49–75; RESP 20–24; TEMP 36.1–36.8; O2SAT 93–100
[2021-03-24 07:09] LABS: Basophils Percent Auto 0.3 % (0.2-1.2); Hematocrit 40.4 % (42.0-52.0); Hemoglobin 13.7 g/dL (14.0-18.0); Immature Granulocyte Absolute 0.22 K/mm3 (0.00-0.031); Immature Granulocyte Percent A 1.9 % (0-0.5); Lymphocytes Absolute Auto 0.95 K/mm3 (0.9-3.2); Lymphocytes Percent Auto 8.1 % (18.3-44.2); Mean Corpuscular HGB Conc 33.9 g/dl (32-36); Mean Corpuscular Hemoglobin 30.5 pg (26-34); Mean Platelet Volume 8.6 fl (7.4-10.4); Monocytes Absolute Auto 1.2 K/mm3 (0.1-0.6); Monocytes Percent Auto 10.3 % (2.6-8.5); Neutrophils Absolute Auto 9.3 K/mm3 (1.3-6.7); Neutrophils Percent Auto 79.4 % (45.5-73.1); Platelet Count Result 505 k/mm3 (150-375); Red Blood Count 4.49 M/mm3 (4.6-6.20); Red Cell Distribution Width 11.9 % (11.5-14.5); White Blood Count 11.7 K/mm3 (4.5-10.0)
[2021-03-24 07:17] LABS: Alanine Aminotransferase 180 U/L (4-50); Anion Gap 8 mmol/L (8-16); Aspartate Amino Transferase 73 U/L (17-59); Blood Urea Nitrogen 26 mg/dL (9-20); Calcium 8.4 mg/dL (8.4-10.2); Carbon Dioxide 27 mmol/L (22-30); Chloride 102 mmol/L (98-107); Estimated CRCL calculation 105 ml/min; Estimated Glomerular Filt Rate > 60; Glucose 120 mg/dL (65-110); Lactate Dehydrogenase 1001 U/L (313-618); Potassium 4.3 mmol/L (3.4-5.0); Sodium 137 mmol/L (137-145)
[2021-03-24 07:20] LABS: INR 1.1; Prothrombin Time 14.3 Seconds (11.1-14.7)
[2021-03-24] MEDS: ESCITALOPRAM OXALATE 10 MG TABLET PO (08:56)
[2021-03-24] MEDS: ENOXAPARIN 40 MG/0.4 ML SYRINGE SUB-Q ×2 (08:56→20:19)
[2021-03-24] MEDS: BARICITINIB 2 MG TABLET 4 MG PO (08:56)
[2021-03-24] MEDS: FUROSEMIDE INJ 40 MG/4 ML VIAL IV PUSH (08:56)
[2021-03-24] MEDS: ALBUTEROL SULFATE (*SP) INHALER 2 PUFF INHALATION ×4 (09:48→20:18)
[2021-03-24] MEDS: REMDESIVIR 100 MG/NS 250 ML 100 MG/250 ML BAG 250 MG IVPB (11:38)
[2021-03-24] MEDS: guaiFENesin 12 HR 600 MG TABCR PO ×2 (11:56→20:19)
--- NOTE | 2021-03-24 12:58 | PM.IMPN ---
Progress Note: A&P Assessment and Plan (1) Acute respiratory failure with hypoxemia: Code(s): J96.01 - Acute respiratory failure with hypoxia Status: Acute Assessment and Plan: Secondary to COVID-19 pneumonia. He is requiring 50% per high-flow nasal cannula.Arivo. CTA is negative for PE but does show diffuse lung disease consistent with COVID 19 pneumonia. Supplemental O2 as needed with goal saturations 92% or above. on Mucinex, Albuterol inhaler, on Baricitinib, Dexamethasone, Remdesivir. Date 4 Glucose level today was 120. A1C =5.8 If he has worsened oxygen requirements, would need to transition to BiPAP Reviewed chest x-ray from admission and yesterday 03/23/2021 showed improvement in COVID-19 pneumonia Continue all Antivirals today, ALT <200, repeating labs in morning, his day 5 of Remdesivir is tomorrow His O2 sats are 95-100% on 50 HF at FiO2 100%. Will try to wean today for the 1st time. His O2 was recently decreased to 90%FiO2 this afternoon (weaned Fio2 by 10%) (2) Pneumonia due to COVID-19 virus: Code(s): U07.1 - COVID-19; J12.82 - Pneumonia due to coronavirus disease 2019 Status: Acute Assessment and Plan: Patient tested positive for COVID-19 on 03/16/2021 at [facility]. 03/20 CXR shows diffuse lung disease. Repeating CXR in the morning. Continue supplemental O2 as described above, HIGH O2 100%FiO2 demand for first 4 days of admission. currently on Mucinex, Albuterol inhaler, on Baricitinib, Dexamethasone, and Remdesivir. Continue supportive therapy feels progressively better today, said that he slept well overnight and has more energy today. He is on day 4 of his antivirals. ALTs have increased from 81 to 180 today. This is may be due to the IV antivirals, history of alcohol, but may also be due to dehydration. Patient still complaining of shortness of breath and cough. Hope to continue both antivirals - since his last day of Remdesivir is tomorrow, and he has significant respiratory failure due to COVID infection. The antivirals are contributing to his improvement and respiratory recovery. His O2 sats are 95-100% on 50 HF at FiO2 100%. Will try to wean today for the 1st time. His O2 was recently decreased to 90%FiO2 this afternoon (weaned Fio2 by 10%) inflammatory markers continue to improve. CRP improved 20.5 to 5.7 today. AST stable from 72 to 73. LDH 959 to 1001 today. Ferritin 1140 improved to 862 today. CXR I ordered yesterday showed Slight improvement in bilateral patchy airspace opacities likely related to COVID pneumonia. (3) Lactic acidosis: Code(s): E87.2 - Acidosis Status: Acute Assessment and Plan: Lactic acid levels elevated 2.4 on presentation. Probably related to sepsis secondary to COVID-19 pneumonia Present on admission RESOLVED. (4) Leukocytosis: Code(s): D72.829 - Elevated white blood cell count, unspecified Status: Acute Assessment and Plan: Likely secondary to recent steroid use. Monitor with labs WBC improved from 12.9 to 11.7 today IMPROVING. Additional Plan # acute hypoxic respiratory failure related to COVID pneumonia CTA negative for PE continue oxygen supplementation # bilateral COVID pneumonia Decadron and remdesivir ordered continue to monitor LFTs check inflammatory markers # equal cytosis recently was treated with steroid likely reason for it unlikely bacterial infection # lactic acidosis poor p.o. intake and dehydration related likely IV hydration. Fluid after 1 L recheck lactic acid level # elevated D-dimer CTA negative for PE likely due to COVID pneumonia # DVT prophylaxis Lovenox # full code status Subjective Date/time seen: 03/24/21 12:58 Interval history: Jono Craven is 41-year-old male with no prior medical history who is seen in follow-up for COVID-19 pneumonia. He is a [employer] worker but admitted that he does breathe in a lot of dust, despite wearing his mask/vent
[2021-03-25] VITALS (20 sets, daily range): BP systolic 108–122; BP diastolic 59–85; PULSE 42–82; RESP 20–28; TEMP 36.3–37.1; O2SAT 92–99
[2021-03-25 06:33] LABS: Basophils Absolute Auto 0.1 K/mm3 (0.0-0.1); Basophils Percent Auto 0.4 % (0.2-1.2); Eosinophils Percent Auto 0.1 % (0-4.4); Hematocrit 43.2 % (42.0-52.0); Hemoglobin 14.5 g/dL (14.0-18.0); Immature Granulocyte Absolute 0.29 K/mm3 (0.00-0.031); Immature Granulocyte Percent A 2.1 % (0-0.5); Lymphocytes Percent Auto 8.5 % (18.3-44.2); Mean Corpuscular HGB Conc 33.6 g/dl (32-36); Mean Corpuscular Hemoglobin 30.9 pg (26-34); Mean Corpuscular Volume 91.9 fl (80-100); Mean Platelet Volume 8.5 fl (7.4-10.4); Monocytes Absolute Auto 0.9 K/mm3 (0.1-0.6); Monocytes Percent Auto 6.2 % (2.6-8.5); Neutrophils Absolute Auto 11.6 K/mm3 (1.3-6.7); Neutrophils Percent Auto 82.7 % (45.5-73.1); Platelet Count Result 521 k/mm3 (150-375); Red Cell Distribution Width 11.9 % (11.5-14.5); White Blood Count 14.1 K/mm3 (4.5-10.0)
[2021-03-25 06:45] LABS: Alanine Aminotransferase 205 U/L (4-50); Anion Gap 7 mmol/L (8-16); Aspartate Amino Transferase 62 U/L (17-59); Blood Urea Nitrogen 25 mg/dL (9-20); CRP 1.9 mg/dL (<1.0); Calcium 8.6 mg/dL (8.4-10.2); Carbon Dioxide 29 mmol/L (22-30); Chloride 98 mmol/L (98-107); Estimated CRCL calculation 106 ml/min; Estimated Glomerular Filt Rate > 60; Glucose 120 mg/dL (65-110); Lactate Dehydrogenase 859 U/L (313-618); Potassium 4.5 mmol/L (3.4-5.0); Sodium 134 mmol/L (137-145)
[2021-03-25 06:46] LABS: Prothrombin Time 13.3 Seconds (11.1-14.7)
[2021-03-25 07:20] LABS: Thyroid Stimulating Hormone Reflex 0.331 uIU/mL (0.465-4.68)
[2021-03-25 07:57] LABS: Free T4 Free Thyroxine Reflex 0.96 ng/dL (0.78-2.19)
[2021-03-25 08:38] LABS: Total Triiodothyronine (T3) 0.72 NG/ML (0.97-1.69)
[2021-03-25] MEDS: ALBUTEROL SULFATE (*SP) INHALER 2 PUFF INHALATION ×4 (08:47→20:42)
[2021-03-25] MEDS: BARICITINIB 2 MG TABLET 4 MG PO (09:21)
[2021-03-25] MEDS: ESCITALOPRAM OXALATE 10 MG TABLET PO (09:22)
[2021-03-25] MEDS: ENOXAPARIN 40 MG/0.4 ML SYRINGE SUB-Q (09:22)
[2021-03-25] MEDS: FUROSEMIDE INJ 40 MG/4 ML VIAL IV PUSH (09:22)
[2021-03-25] MEDS: guaiFENesin 12 HR 600 MG TABCR PO ×2 (09:22→21:30)
[2021-03-25] MEDS: REMDESIVIR 100 MG/NS 250 ML 100 MG/250 ML BAG 250 MG IVPB (11:26)
--- NOTE | 2021-03-25 12:34 | PM.IMPN ---
Progress Note: A&P Assessment and Plan (1) Acute respiratory failure with hypoxemia: Code(s): J96.01 - Acute respiratory failure with hypoxia Status: Acute Assessment and Plan: Secondary to COVID-19 pneumonia. He is requiring 35 L/min per high-flow nasal cannula with Airvo. CTA is negative for PE but does show diffuse lung disease consistent with COVID 19 pneumonia. Supplemental O2 as needed with goal saturations 92% or above. Tolerating Airvo well and O2 requirements have improved slightly. At 1 point required up to 55 L/min on Airvo If he were to have increased O2 demand beyond Airvo capacity, would need to transition to BiPAP. He is agreeable to intubation should this become necessary. (2) Pneumonia due to COVID-19 virus: Code(s): U07.1 - COVID-19; J12.82 - Pneumonia due to coronavirus disease 2019 Status: Acute Assessment and Plan: Patient tested positive for COVID-19 on 03/16/2021 at [facility]. Confirmatory test at this facility positive on 03/21/2021. Initial CXR with diffuse lung disease. Repeat CXR 03/23/2021 showed slight improvement in bilateral patchy airspace opacities. Supplemental O2 as noted above Continue dexamethasone day 6 Completed 5 days of IV remdesivir today. ALT elevated, though remdesivir has been discontinued. Continue to monitor LFTs Continue Baricitinib given increased O2 demand, day 5 today Supportive care to include bronchodilators, expectorants, antipyretics Improvement noted in inflammatory markers. Continue to trend intermittently He has not been vaccinated for COVID-19. Eligible for vaccine 90 days following acute illness (3) Lactic acidosis: Code(s): E87.2 - Acidosis Status: Acute Assessment and Plan: Resolved. Lactic acid levels elevated 2.4 on presentation. Probably related to sepsis secondary to COVID-19 pneumonia (4) Leukocytosis: Code(s): D72.829 - Elevated white blood cell count, unspecified Status: Acute Assessment and Plan: Likely related to IV steroids. Continue to monitor CBC (5) Prediabetes: Code(s): R73.03 - Prediabetes Status: Acute Assessment and Plan: Fasting blood sugar noted to be elevated, likely due to steroids. A1c evaluated on 03/23/2021 with A1c of 5.8. Will need to implement dietary and lifestyle changes. Subjective Date/time seen: 03/25/21 12:34 Interval history: Date of service: 03/25/2021 Jono Craven is 41-year-old male with no prior medical history who is seen in follow-up for COVID-19 pneumonia. He is feeling better. He is in good spirits and is pleased that his oxygen requirements are decreasing. Still feeling quite short of breath and experiencing conversational dyspnea as well as dyspnea on exertion. He is able to get up to the bedside commode and get back in bed but otherwise not much more activity outside of that. He endorses cough productive of clear-white sputum. Denies nausea, vomiting, fever, chills, dizziness, lightheadedness, dysuria, hematuria, diarrhea. Appetite is good. Denies chest pain or palpitations. Review of Systems Review of Systems: All systems reviewed & are unremarkable except as noted in HPI and below Exam Narrative: Mr. Craven is a well-nourished, well-appearing 41-year-old male who is lying semi recumbent in bed. He appears comfortable and is in NARD. Neuro: awake, alert and oriented x4, speech clear, no focal neuro deficits noted HEENMT: normocephalic, atraumatic, EOMI, sclerae anicteric, moist oral mucosa Neck: supple, no lymphadenopathy Respiratory: Diminished breath sounds bilaterally, nonlabored breathing. Cardio: regular rate, regular rhythm with S1-S2 Abdomen: nondistended, normoactive bowel sounds, soft, nontender to palpation Extremities: no edema, erythema, or tenderness to palpation, DP pulses 2+ bilaterally Skin: no rashes or lesions, warm and dry Psych: appropriate mood and
[2021-03-25] MEDS: MELATONIN 3 MG TABLET PO (21:30)
[2021-03-26] VITALS (22 sets, daily range): BP systolic 114–127; BP diastolic 69–78; PULSE 45–92; RESP 18–24; TEMP 36.3–36.9; O2SAT 91–100
[2021-03-26 05:15] LABS: Basophils Absolute Auto 0.1 K/mm3 (0.0-0.1); Basophils Percent Auto 0.5 % (0.2-1.2); Hematocrit 41.5 % (42.0-52.0); Hemoglobin 14.1 g/dL (14.0-18.0); Immature Granulocyte Absolute 0.35 K/mm3 (0.00-0.031); Immature Granulocyte Percent A 2.3 % (0-0.5); Lymphocytes Absolute Auto 1.22 K/mm3 (0.9-3.2); Lymphocytes Percent Auto 8.1 % (18.3-44.2); Mean Corpuscular Hemoglobin 30.2 pg (26-34); Mean Corpuscular Volume 88.9 fl (80-100); Mean Platelet Volume 8.5 fl (7.4-10.4); Monocytes Percent Auto 6.7 % (2.6-8.5); Neutrophils Absolute Auto 12.4 K/mm3 (1.3-6.7); Neutrophils Percent Auto 82.4 % (45.5-73.1); Platelet Count Result 576 k/mm3 (150-375); Red Blood Count 4.67 M/mm3 (4.6-6.20); Red Cell Distribution Width 11.6 % (11.5-14.5); White Blood Count 15.1 K/mm3 (4.5-10.0)
[2021-03-26 05:25] LABS: Alanine Aminotransferase 151 U/L (4-50); Albumin Level 3.8 g/dL (3.5-5.1); Alkaline Phosphatase 55 U/L (38-126); Anion Gap 7 mmol/L (8-16); Aspartate Amino Transferase 33 U/L (17-59); Bilirubin,Total 0.5 mg/dL (0.2-1.3); Blood Urea Nitrogen 24 mg/dL (9-20); CRP 1.1 mg/dL (<1.0); Calcium 8.5 mg/dL (8.4-10.2); Carbon Dioxide 25 mmol/L (22-30); Chloride 102 mmol/L (98-107); Estimated CRCL calculation 120 ml/min; Estimated Glomerular Filt Rate > 60; Glucose 126 mg/dL (65-110); Potassium 4.7 mmol/L (3.4-5.0); Sodium 134 mmol/L (137-145)
[2021-03-26] MEDS: ALBUTEROL SULFATE (*SP) INHALER 2 PUFF INHALATION ×4 (08:42→21:48)
[2021-03-26] MEDS: BARICITINIB 2 MG TABLET 4 MG PO (08:44)
[2021-03-26] MEDS: ENOXAPARIN 40 MG/0.4 ML SYRINGE SUB-Q (08:44)
[2021-03-26] MEDS: ESCITALOPRAM OXALATE 10 MG TABLET PO (08:44)
[2021-03-26] MEDS: guaiFENesin 12 HR 600 MG TABCR PO ×2 (08:44→20:15)
--- NOTE | 2021-03-26 16:04 | PM.IMPN ---
Progress Note: A&P Assessment and Plan (1) Acute respiratory failure with hypoxemia: Code(s): J96.01 - Acute respiratory failure with hypoxia Status: Acute Assessment and Plan: Secondary to COVID-19 pneumonia. He required up to 55 L/min per high-flow nasal cannula with Airvo. CTA is negative for PE but did show diffuse lung disease consistent with COVID 19 pneumonia. Supplemental O2 as needed with goal saturations 92% or above. He has been weaned from Airvo and is now requiring 6 liters/minute per high-flow nasal cannula, tolerating well If he were to have increased O2 demand beyond Airvo capacity, would need to transition to BiPAP. He is agreeable to intubation should this become necessary. (2) Pneumonia due to COVID-19 virus: Code(s): U07.1 - COVID-19; J12.82 - Pneumonia due to coronavirus disease 2019 Status: Acute Assessment and Plan: Patient tested positive for COVID-19 on 03/16/2021 at [facility]. Confirmatory test at this facility positive on 03/21/2021. Initial CXR with diffuse lung disease. Repeat CXR 03/23/2021 showed slight improvement in bilateral patchy airspace opacities. Supplemental O2 as noted above Continue dexamethasone day 7 Completed 5 days of IV remdesivir. ALT improving. Continue to monitor LFTs Continue Baricitinib given increased O2 demand, day 6 today Supportive care to include bronchodilators, expectorants, antipyretics Improvement noted in inflammatory markers. Continue to trend intermittently He has not been vaccinated for COVID-19. Eligible for vaccine 90 days following acute illness (3) Lactic acidosis: Code(s): E87.2 - Acidosis Status: Acute Assessment and Plan: Resolved. Lactic acid levels elevated 2.4 on presentation. Probably related to sepsis secondary to COVID-19 pneumonia (4) Leukocytosis: Code(s): D72.829 - Elevated white blood cell count, unspecified Status: Acute Assessment and Plan: Likely related to IV steroids. Continue to monitor CBC (5) Prediabetes: Code(s): R73.03 - Prediabetes Status: Acute Assessment and Plan: Fasting blood sugar noted to be elevated, likely due to steroids. A1c evaluated on 03/23/2021 with A1c of 5.8. Will need to implement dietary and lifestyle changes. Subjective Date/time seen: 03/26/21 16:04 Interval history: Date of service: 03/26/2021 Jono Craven is 41-year-old male with no prior medical history who is seen in follow-up for COVID-19 pneumonia. He is feeling well today. His shortness of breath has improved significantly. Denies wheezing. Denies cough or sputum production. No nausea, vomiting, fever, chills, dizziness, lightheadedness, chest pain, palpitations. He is pleased that he is no longer requiring the Airvo. He can taste his food in small better without the high-flow oxygen. Therefore, he is starting to eat a little bit more. He feels he is getting some strength back. Review of Systems Review of Systems: All systems reviewed & are unremarkable except as noted in HPI and below Exam Narrative: Mr. Craven is a well-nourished, well-appearing 41-year-old male who is lying semi recumbent in bed. He appears comfortable and is in NARD. Neuro: awake, alert and oriented x4, speech clear, no focal neuro deficits noted HEENMT: normocephalic, atraumatic, EOMI, sclerae anicteric Neck: supple, no lymphadenopathy Respiratory: Diminished breath sounds bilaterally, nonlabored breathing. Cardio: regular rate, regular rhythm with S1-S2 Abdomen: nondistended, normoactive bowel sounds, soft, nontender to palpation Extremities: no edema, erythema, or tenderness to palpation, DP pulses 2+ bilaterally Skin: no rashes or lesions, warm and dry Psych: appropriate mood and affect, judgment and insight intact Objective Data Vital Signs Vital Signs: Vital Signs - 24 hr 03/25/21 17:50 03/25/21 20:00 03/25/21 20:4
[2021-03-26] MEDS: MELATONIN 3 MG TABLET PO (20:15)
[2021-03-27] VITALS (15 sets, daily range): BP systolic 103–117; BP diastolic 65–74; PULSE 47–74; RESP 18–20; TEMP 36.2–36.8; O2SAT 91–98
[2021-03-27 05:37] LABS: Basophils Absolute Auto 0.1 K/mm3 (0.0-0.1); Basophils Percent Auto 0.4 % (0.2-1.2); Eosinophils Percent Auto 0.1 % (0-4.4); Hematocrit 43.1 % (42.0-52.0); Hemoglobin 14.3 g/dL (14.0-18.0); Immature Granulocyte Percent A 2.5 % (0-0.5); Lymphocytes Absolute Auto 1.12 K/mm3 (0.9-3.2); Lymphocytes Percent Auto 6.9 % (18.3-44.2); Mean Corpuscular HGB Conc 33.2 g/dl (32-36); Mean Corpuscular Hemoglobin 30.4 pg (26-34); Mean Corpuscular Volume 91.7 fl (80-100); Mean Platelet Volume 8.4 fl (7.4-10.4); Monocytes Absolute Auto 1.1 K/mm3 (0.1-0.6); Monocytes Percent Auto 6.7 % (2.6-8.5); Neutrophils Absolute Auto 13.5 K/mm3 (1.3-6.7); Neutrophils Percent Auto 83.4 % (45.5-73.1); Platelet Count Result 554 k/mm3 (150-375); Red Cell Distribution Width 11.9 % (11.5-14.5); White Blood Count 16.2 K/mm3 (4.5-10.0)
[2021-03-27 05:58] LABS: Alanine Aminotransferase 129 U/L (4-50); Albumin Level 3.7 g/dL (3.5-5.1); Alkaline Phosphatase 54 U/L (38-126); Anion Gap 6 mmol/L (8-16); Aspartate Amino Transferase 31 U/L (17-59); Bilirubin,Total 0.5 mg/dL (0.2-1.3); Blood Urea Nitrogen 21 mg/dL (9-20); Calcium 8.3 mg/dL (8.4-10.2); Carbon Dioxide 28 mmol/L (22-30); Chloride 100 mmol/L (98-107); Estimated CRCL calculation 97 ml/min; Estimated Glomerular Filt Rate > 60; Glucose 123 mg/dL (65-110); Potassium 4.3 mmol/L (3.4-5.0); Sodium 134 mmol/L (137-145)
[2021-03-27] MEDS: ALBUTEROL SULFATE (*SP) INHALER 2 PUFF INHALATION ×4 (09:16→21:08)
[2021-03-27] MEDS: BARICITINIB 2 MG TABLET 4 MG PO (09:37)
[2021-03-27] MEDS: ESCITALOPRAM OXALATE 10 MG TABLET PO (09:38)
[2021-03-27] MEDS: guaiFENesin 12 HR 600 MG TABCR PO ×2 (09:38→20:13)
[2021-03-27] MEDS: ENOXAPARIN 40 MG/0.4 ML SYRINGE SUB-Q (09:38)
--- NOTE | 2021-03-27 12:48 | PM.IMPN ---
Progress Note: A&P Assessment and Plan (1) Acute respiratory failure with hypoxemia: Code(s): J96.01 - Acute respiratory failure with hypoxia Status: Acute Assessment and Plan: Secondary to COVID-19 pneumonia. He required up to 55 L/min per high-flow nasal cannula with Airvo. CTA is negative for PE but did show diffuse lung disease consistent with COVID 19 pneumonia. Supplemental O2 as needed with goal saturations 92% or above. He has been weaned from Airvo and is now requiring 3 L per nasal cannula. Will downgrade to medical floor at this point given his improvement Home O2 eval tomorrow if continued improvement (2) Pneumonia due to COVID-19 virus: Code(s): U07.1 - COVID-19; J12.82 - Pneumonia due to coronavirus disease 2019 Status: Acute Assessment and Plan: Patient tested positive for COVID-19 on 03/16/2021 at [facility]. Confirmatory test at this facility positive on 03/21/2021. Initial CXR with diffuse lung disease. Repeat CXR 03/23/2021 showed slight improvement in bilateral patchy airspace opacities. Supplemental O2 as noted above Continue dexamethasone day 8 Completed 5 days of IV remdesivir. ALT improving. Continue to monitor LFTs Continue Baricitinib given increased O2 demand, day 7 today Supportive care to include bronchodilators, expectorants, antipyretics Improvement noted in inflammatory markers. Continue to trend intermittently He has not been vaccinated for COVID-19. Eligible for vaccine 90 days following acute illness (3) Lactic acidosis: Code(s): E87.2 - Acidosis Status: Acute Assessment and Plan: Resolved. Lactic acid levels elevated 2.4 on presentation. Probably related to sepsis secondary to COVID-19 pneumonia (4) Leukocytosis: Code(s): D72.829 - Elevated white blood cell count, unspecified Status: Acute Assessment and Plan: Likely related to IV steroids. Continue to monitor CBC. WBC continues to increase, though no signs/symptoms to suggest secondary infectious process. Will repeat CXR. (5) Prediabetes: Code(s): R73.03 - Prediabetes Status: Acute Assessment and Plan: Fasting blood sugar noted to be elevated, likely due to steroids. A1c evaluated on 03/23/2021 with A1c of 5.8. Will need to implement dietary and lifestyle changes. Subjective Date/time seen: 03/27/21 12:48 Interval history: Date of service: 03/27/2021 Jono Craven is 41-year-old male with no prior medical history who is seen in follow-up for COVID-19 pneumonia. Continues to feel improved. Shortness of breath getting better each day. Reports intermittent, nonproductive cough. Reports looser stools, denies diarrhea. Appetite is good. Denies chest pain, palpitations, orthopnea, PND. No nausea, vomiting, fever, chills. He is eager for discharge home. Review of Systems Review of Systems: All systems reviewed & are unremarkable except as noted in HPI and below Exam Narrative: Mr. Craven is a well-nourished, well-appearing 41-year-old male who is lying semi recumbent in bed. He appears comfortable and is in NARD. Neuro: awake, alert and oriented x4, speech clear, no focal neuro deficits noted HEENMT: normocephalic, atraumatic, EOMI, sclerae anicteric Neck: supple, no lymphadenopathy Respiratory: Clear to auscultation bilaterally, nonlabored breathing. Cardio: regular rate, regular rhythm with S1-S2 Abdomen: nondistended, normoactive bowel sounds, soft, nontender to palpation Extremities: no edema, erythema, or tenderness to palpation, DP pulses 2+ bilaterally Skin: no rashes or lesions, warm and dry Psych: appropriate mood and affect, judgment and insight intact Objective Data Vital Signs Vital Signs: Vital Signs - 24 hr 03/26/21 14:00 03/26/21 16:00 03/26/21 16:53 Temperature 97.4 F L Pulse Rate 66 80 66 Respiratory Rate 20 Blood Pressure 127/69 Pulse Oximetry 97 97 12
[2021-03-27] MEDS: MELATONIN 3 MG TABLET PO (20:13)
[2021-03-28] VITALS (8 sets, daily range): BP systolic 103–110; BP diastolic 70–79; PULSE 53–121; RESP 18; TEMP 36.1–36.7; O2SAT 85–97
[2021-03-28 05:07] LABS: Basophils Absolute Auto 0.1 K/mm3 (0.0-0.1); Basophils Percent Auto 0.4 % (0.2-1.2); Eosinophils Percent Auto 0.3 % (0-4.4); Hematocrit 42.5 % (42.0-52.0); Hemoglobin 14.3 g/dL (14.0-18.0); Immature Granulocyte Absolute 0.33 K/mm3 (0.00-0.031); Immature Granulocyte Percent A 2.1 % (0-0.5); Lymphocytes Absolute Auto 1.35 K/mm3 (0.9-3.2); Lymphocytes Percent Auto 8.8 % (18.3-44.2); Mean Corpuscular HGB Conc 33.6 g/dl (32-36); Mean Corpuscular Hemoglobin 30.1 pg (26-34); Mean Corpuscular Volume 89.5 fl (80-100); Mean Platelet Volume 8.3 fl (7.4-10.4); Monocytes Absolute Auto 1.1 K/mm3 (0.1-0.6); Neutrophils Absolute Auto 12.5 K/mm3 (1.3-6.7); Neutrophils Percent Auto 81.4 % (45.5-73.1); Platelet Count Result 587 k/mm3 (150-375); Red Blood Count 4.75 M/mm3 (4.6-6.20); Red Cell Distribution Width 11.4 % (11.5-14.5); White Blood Count 15.4 K/mm3 (4.5-10.0)
[2021-03-28 05:30] LABS: Alanine Aminotransferase 123 U/L (4-50); Albumin Level 3.7 g/dL (3.5-5.1); Alkaline Phosphatase 51 U/L (38-126); Anion Gap 7 mmol/L (8-16); Aspartate Amino Transferase 32 U/L (17-59); Bilirubin,Total 0.5 mg/dL (0.2-1.3); Blood Urea Nitrogen 22 mg/dL (9-20); CRP 0.6 mg/dL (<1.0); Calcium 8.3 mg/dL (8.4-10.2); Carbon Dioxide 25 mmol/L (22-30); Chloride 101 mmol/L (98-107); Estimated CRCL calculation 97 ml/min; Estimated Glomerular Filt Rate > 60; Glucose 135 mg/dL (65-110); Lactate Dehydrogenase 638 U/L (313-618); Potassium 4.7 mmol/L (3.4-5.0); Sodium 133 mmol/L (137-145)
--- NOTE | 2021-03-28 08:31 | PCNWS ---
Weekly nutritional screen. Patient is tolerating current diet with adequate intake. No weight loss reported. No nutritional needs at this time.
[2021-03-28] MEDS: ESCITALOPRAM OXALATE 10 MG TABLET PO (08:44)
[2021-03-28] MEDS: BARICITINIB 2 MG TABLET 4 MG PO (08:44)
[2021-03-28] MEDS: guaiFENesin 12 HR 600 MG TABCR PO (08:44)
[2021-03-28] MEDS: ENOXAPARIN 40 MG/0.4 ML SYRINGE SUB-Q (08:45)
[2021-03-28] MEDS: ALBUTEROL SULFATE (*SP) INHALER 2 PUFF INHALATION ×2 (08:56→12:30)
--- NOTE | 2021-03-28 11:58 | HOMEO2EVAL ---
Evaluation was performed at [facility] Home Oxygen Evaluation RC: Home Oxygen (O2) Evaluation Start: 03/28/21 10:33 Freq: ONCE Status: Active Protocol: RPE Activity Type Activity Date Activity User E-Sign Co-Sign Detail Recorded Client Recorded Date Recorded By Document 03/28/21 11:00 GALA [email or web address] 03/28/21 11:55 GALA Document 03/28/21 11:02 GALA [email or web address] 03/28/21 11:55 GALA Document 03/28/21 11:03 GALA [email or web address] 03/28/21 11:55 GALA Document 03/28/21 11:04 GALA [email or web address] 03/28/21 11:55 GALA Document 03/28/21 11:15 GAAL [email or web address] 03/28/21 11:55 GALA 03/28/21 03/28/21 03/28/21 11:00 11:02 11:03 Home O2 Evaluation Test Phase Resting Exercise Exercise Oxygen Delivery Room Air Room Air Nasal Cannula Oxygen Flow Rate (L/min) 1 Pulse Oximetry (90-100 %) 91 85 L 87 L Pulse Rate (60-100 beats/min) 86 121 H Home Oxygen Evaluation Comments Treatment Charges O2 Evaluation - Inpatient 03/28/21 03/28/21 11:04 11:15 Home O2 Evaluation Test Phase Exercise Resting Oxygen Delivery Nasal Cannula Room Air Oxygen Flow Rate (L/min) 2 Pulse Oximetry (90-100 %) 91 93 Pulse Rate (60-100 beats/min) Home Oxygen Evaluation Comments Pt requires 2 L home O2 with activity Treatment Charges
--- NOTE | 2021-03-28 12:10 | PCRCNOTE ---
Home O2 will be arranged with [facility]. Tank to be in room upon D/C for transport home.
--- NOTE | 2021-03-28 15:00 | PM.DS ---
DS: Admitting Diagnosis Discharge Date 03/28/21 Admitting Diagnosis COVID-19 pneumonia DS: Discharge Diagnosis Discharge Diagnosis (1) Acute respiratory failure with hypoxemia: Code(s): J96.01 - Acute respiratory failure with hypoxia Status: Acute Assessment and Plan: Secondary to COVID-19 pneumonia. He required up to 55 L/min per high-flow nasal cannula with Airvo. CTA is negative for PE but did show diffuse lung disease consistent with COVID 19 pneumonia. Supplemental O2 was able to be slowly weaned. Home O2 eval performed on 03/28/2021 which demonstrated need for 2 L supplemental O2 with activity only. Home oxygen was arranged. (2) Pneumonia due to COVID-19 virus: Code(s): U07.1 - COVID-19; J12.82 - Pneumonia due to coronavirus disease 2019 Status: Acute Assessment and Plan: Patient tested positive for COVID-19 on 03/16/[address] [facility]. Confirmatory test at this facility positive on 03/21/2021. Initial CXR with diffuse lung disease. He completed 5 days of IV remdesivir. He also received IV dexamethasone as well as Baricitinib. Supportive care provided including bronchodilators, expectorants, antipyretics. Inflammatory markers were trended and he did have improvement. Subsequent CXR showed improving pneumonia. Home O2 will be continued. He has not been vaccinated for COVID-19. Discussed that he is eligible for vaccination 90 days following acute illness. He has follow-up scheduled with his primary care provider on 04/01/2021 (3) Lactic acidosis: Code(s): E87.2 - Acidosis Status: Acute Assessment and Plan: Resolved. Lactic acid levels elevated 2.4 on presentation. Probably related to acute illness secondary to COVID-19 pneumonia (4) Leukocytosis: Code(s): D72.829 - Elevated white blood cell count, unspecified Status: Acute Assessment and Plan: Likely related to IV steroids. No signs/symptoms to suggest secondary infectious process. (5) Prediabetes: Code(s): R73.03 - Prediabetes Status: Acute Assessment and Plan: Fasting blood sugar noted to be elevated, likely due to steroids. A1c evaluated on 03/23/2021 with A1c of 5.8. Educated on dietary and lifestyle changes. DS: Summary Hospital Course Hospital Course: Date of admission: 03/20/2021 Date of discharge: 03/28/2021 Jono Craven is 41-year-old male with no prior medical history who presented to the emergency department on 03/20/2021 with complaints of shortness of breath, cough, fever, and body aches after having tested positive for COVID 4 days prior. On presentation to the emergency department, he had a low-grade temperature 99.7?, he was tachycardic and tachypneic, and hypoxic down to 87%, white blood cell count 13,000, additional CBC and BMP unremarkable, lactic acid 2.4, and CXR showed diffuse lung disease consistent with COVID 19 pneumonia. He was admitted to the hospitalist service for further evaluation and management. Please see above for further details. His oxygen requirements were able to be slowly weaned and he eventually was tolerating room air at rest and found to require 2 L supplemental O2 with activity. He was feeling significantly improved and requested discharge home. He has follow-up scheduled with his primary care provider in 4 days. 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 We discussed worrisome signs and symptoms for which to return he was educated on his medications. We also discussed COVID-19 precautions at length. He was discharged in hemodynamically stable condition on 03/28/2021. Status at Discharge Functional status at discharge: independent ambulation Overall status at discharge: patient is progressing back to baseline Time Spent with Patient Time attestation: Total time spent providing and/or coordinating disc
== END 2021-03-28 13:52 | disposition home or self-care (01) | DRG 177 ==
LOC: ANHED 03-21 00:11 → ANH3MEDSUR 03-21 07:09 → ANHIMU 03-28 06:40 → ANH3MEDSUR 03-29 14:22 → ANHIMU 03-29 14:22
PROVIDERS: Nurse Practitioner; Admitting Provider Internal Medicine; Emergency Provider Emergency Medicine; Visit Provider Physician Assistant
DX: U07.1 COVID-19 (principal); J12.82 Pneumonia due to coronavirus disease 2019; J96.01 Acute respiratory failure with hypoxia; E87.2 Acidosis; E86.0 Dehydration; D72.828 Other elevated white blood cell count; T38.0X5A Adverse effect of glucocorticoids and synthetic analogues, initial encounter; R73.03 Prediabetes
CPT/HCPCS: 36415; 36600; 71045; 71275; 80048; 80053; 82375; 82565; 82728; 82805; 83036; 83050; 83605; 83615; 83880; 84439; 84443; 84450; 84460; 84480; 85025; 85380; 85610; 85730; 86140; 87070; 87205; 93005; 94618; 94640; 96374; 96375; 99291; A9270; C9803; J1100; J1650; J1940; J2405; J7120; Q9967; U0003; U0005

== ENCOUNTER 2024-10-12 14:37 | Emergency (ER) | payer BC, SELFPAY ==
[2024-10-12] VITALS (10 sets, daily range): BP systolic 122–132; BP diastolic 67–87; PULSE 82–98; RESP 13–19; TEMP 36.9; O2SAT 93–99
--- NOTE | ~2024-10-12 | XR_ITS ---
EXAMINATION: XR chest 2V DATE: 10/12/2024 15:33 INDICATION: Chest pain TECHNIQUE: PA and lateral views of the chest were obtained. COMPARISON: Chest radiograph dated 03/27/2021 FINDINGS: The lungs are clear with no focal airspace opacities, pulmonary edema, pleural effusion or pneumothor ax. The cardiomediastinal silhouette is normal. Mild lower thoracic levocurvature. IMPRESSION: 1. No acute cardiopulmonary disease. Reviewed, dictated and finalized at location A.
--- NOTE | 2024-10-12 14:40 | ECG_ITS ---
Test Date: 2024-10-12 14:47:44 Measurements Intervals [place] Rate: 101 P: 39 VT: 124 QRS: 49 QRSD: 80 T: 31 QT: 340 QTc: 443 Interpretive Statements SINUS TACHYCARDIA BORDERLINE ST-T WAVE ABNORMALITY- ANT/INF LEADS BASELINE ARTIFACT- I, II, III, AVR, AVL, AVF BORDERLINE ECG No previous ECG available for comparison Electronically Signed On 10-13-2024 09:51:44 CDT by Riky Kim D.O.
[2024-10-12 15:04] LABS: Basophils Absolute Auto 0.1 K/mm3 (0.0-0.1); Basophils Percent Auto 0.9 % (0.2-1.2); Eosinophils Absolute Auto 0.4 K/mm3 (0-0.3); Eosinophils Percent Auto 3.4 % (0-4.4); Hematocrit 44.1 % (42.0-52.0); Hemoglobin 15.1 g/dL (14.0-18.0); Immature Granulocyte Absolute 0.03 K/mm3 (0.00-0.031); Immature Granulocyte Percent A 0.2 % (0-0.5); Lymphocytes Absolute Auto 3.47 K/mm3 (0.9-3.2); Lymphocytes Percent Auto 27.1 % (18.3-44.2); Mean Corpuscular HGB Conc 34.2 g/dl (32-36); Mean Corpuscular Volume 87.7 fl (80-100); Monocytes Absolute Auto 0.9 K/mm3 (0.1-0.6); Neutrophils Absolute Auto 7.9 K/mm3 (1.3-6.7); Neutrophils Percent Auto 61.4 % (45.5-73.1); Platelet Count Result 397 k/mm3 (150-375); Red Blood Count 5.03 M/mm3 (4.6-6.20); Red Cell Distribution Width 12.2 % (11.5-14.5); White Blood Count 12.8 K/mm3 (4.5-10.0)
[2024-10-12 15:15] LABS: Alanine Aminotransferase 57 U/L (6-50); Alkaline Phosphatase 79 U/L (38-126); Anion Gap 13 mmol/L (4-12); Aspartate Amino Transferase 40 U/L (17-59); Bilirubin,Total 0.4 mg/dL (0.2-1.3); Blood Urea Nitrogen 18 mg/dL (9-20); Calcium 9.8 mg/dL (8.4-10.2); Carbon Dioxide 21 mmol/L (22-30); Chloride 107 mmol/L (98-107); Estimated Glomerular Filt Rate > 60; Glucose 85 mg/dL (65-110); Lipase 128 U/L (23-300); Potassium 4.1 mmol/L (3.4-5.0); Sodium 141 mmol/L (137-145); Total Protein 8.4 g/dL (6.3-8.2)
[2024-10-12 15:19] LABS: INR 0.9; Prothrombin Time 12.4 Seconds (11.1-14.7)
[2024-10-12 15:20] LABS: Partial Thromboplastin Time 27.1 Seconds (22.3-36.8)
[2024-10-12 15:26] LABS: Troponin I < 0.012 ng/mL (0.000-0.034)
[2024-10-12] MEDS: ASPIRIN 81 MG CHEWABLE TABLET 324 MG PO (16:26)
--- NOTE | 2024-10-12 17:30 | ECG_ITS ---
Test Date: 2024-10-12 17:34:27 Measurements Intervals [place] Rate: 82 P: 39 [place]: 129 QRS: 46 QRSD: 92 T: 27 QT: 378 QTc: 442 Interpretive Statements SINUS RHYTHM NORMAL ECG No previous ECG available for comparison Electronically Signed On 10-12-2024 18:46:42 CDT by Riky Kim D.O.
--- NOTE | 2024-10-12 17:47 | ED_ITS ---
HPI - Chest Pain General Chief Complaint: Chest Pain Stated Complaint: Chest tightness on left side for 15 min Time Seen by Provider: 10/12/24 15:45 History of Present Illness HPI narrative: The patient is a 44-year-old male who presents ER with chest pain. Left-sided. Over the pack going towards the shoulder. Occurred while his driving. He has history of anxiety but does not think it usually shows up like this. No shortness of breath. Pain is improving. No hemoptysis. No exertional component. Worse with touch. Related Data Home Medications ?Medication ?Instructions ?Recorded ?Confirmed ?Last Taken ?Type Lexapro 10 mg DAILY 03/20/21 03/21/21 Unknown History Allergies Allergy/AdvReac Type Severity Reaction Status Date / Time No Known Allergies Allergy Verified 03/21/21 02:32 Review of Systems 2 Review of Systems: All systems reviewed & are unremarkable except as noted in HPI and below Constitutional: Constitutional: Reports no additional constitutional complaints Cardiovascular: Cardiovascular: Reports no additional cardiovascular complaints Respiratory: Respiratory: Reports no additional respiratory complaints Gastrointestinal: Gastrointestinal: Reports no additional gastrointestinal complaints Musculoskeletal: Musculoskeletal: Reports no additional musculoskeletal complaints [facility] Past Medical History Medical History (Updated 10/12/24 @ 17:53 by Jono Stoddard MD) Prediabetes Family History Family History (Updated 03/21/21 @ 02:29 by Mitra Hebert RN) Other No significant family history Social History Social History Smoking status: Never smoker Alcohol intake: current Drinks per week: 2 Substance use: never Spiritual care concerns: No Exam 2 Narrative: GENERAL: Well-appearing, well-nourished, and in no acute distress. HEAD: Normocephalic, atraumatic. ENT: Mucous membranes moist. NECK: Supple. CHEST: Clear to auscultation. No respiratory distress. Mild discomfort with palpation left upper pectoralis. HEART: Regular rate and rhythm. Normal peripheral pulses. ABDOMEN: Soft, nontender, nondistended. EXTREMITIES: Normal range of motion. No edema. SKIN: Warm, dry, no rash. NEURO: Alert and oriented x3. PSYCH: Normal mood and affect. Course Course Emergency Course: Troponin negative x2. Patient given reassurance. Follow-up with PCP. Scheduled anti-inflammatories for home. Vital Signs Vital signs: Vital Signs Temperature 98.5 F 10/12/24 15:10 Pulse Rate 98 06/25/25 15:10 Respiratory Rate 16 10/12/24 15:10 Pulse Oximetry 99 10/12/24 15:10 Temperature 98.5 F 10/12/24 15:10 Pulse Rate 98 10/12/24 15:10 Respiratory Rate 16 10/12/24 15:10 Pulse Oximetry 99 10/12/24 15:10 Oxygen Delivery Room Air 10/12/24 16:16 MDM - Chest Pain Lab Data 10/12/24 14:53 10/12/24 14:53 Labs: Lab Results 10/12/24 10/12/24 Range/Units 14:53 17:47 WBC 12.8 H (4.5-10.0) K/mm3 RBC 5.03 (4.6-6.20) M/mm3 Hgb 15.1 (14.0-18.0) g/dL Hct 44.1 (42.0-52.0) % MCV 87.7 (80-100) fl MCH 30.0 (26-34) pg MCHC 34.2 (32-36) g/dl RDW 12.2 (11.5-14.5) % Plt Count 397 H (150-375) k/mm3 MPV 9.0 (7.4-10.4) fl Immature Gran % (Auto) 0.2 (0-0.5) % Neut % (Auto) 61.4 (45.5-73.1) % Lymph % (Auto) 27.1 (18.3-44.2) % [place] % (Auto) 7.0 (2.6-8.5) % Eos % (Auto) 3.4 (0-4.4) % Baso % (Auto) 0.9 (0.2-1.2) % Lymph # (Auto) 3.47 H (0.9-3.2) K/mm3 [place] # (Auto) 0.9 H (0.1-0.6) K/mm3 Eos # (Auto) 0.4 H (0-0.3) K/mm3 Baso # (Auto) 0.1 (0.0-0.1) K/mm3 Abs Immat Gran (auto) 0.03 (0.00-0.031) K/mm3 Absolute Neuts (auto) 7.9 H (1.3-6.7) K/mm3 Absolute Nucleated RBC 0.000 (0.0-0.012) K/mm3 Nucleated RBC % 0.0 (0.0-0.2) % PT 12.4 (11.1-14.7) Seconds INR 0.9 APTT 27.1 (22.3-36.8) Seconds Sodium 141 (137-145) mmol/L Potassium 4.1 (3.4-5.0) mmol/L Chloride 107 (98-107) mmol/L Carbon Dioxide 21 L (22-30) mmol/L Anion Gap 13 H (4-12) mmol/L BUN 18 (9-20) mg/dL Creatinine 1.22 (0.7-1.3) mg/dL Estim Creat Clear Calc Not Reportable Estimated GFR > 60 (59 - ) Glucose 85 (65-110) mg/dL Calcium 9.8 (8.4-10.2) mg/dL Total Bilirubin 0.4 (0.2-1.3) mg/dL AST 40 (17-59) U/L ALT 57 H (6-50) U/L Alkaline Phosphatase 79 (38-126) U/L Troponin I < 0.012 < 0.012 (0.000-0.034) ng/mL Total Protein 8.4 H (6.3-8.2) g/dL Albumin 5.0 (3.5-5.1) g/dL Lipase 128 (23-300) U/L Imaging Data Radiologist's impression: ITS Impressions Chest X-Ray 10/12/24 15:34 IMPRESSION: 1. No acute cardiopulmonary disease. ECG Data EKG #1: ECG completion date: 10/12/24 ECG completion time: 17:34 EKG Interpretation: normal rate (82), sinus rhythm, non-specific ST changes, normal QRS, normal QT and NL axis Discharge Plan Discharge Clinical Impression: Atypical chest pain Patient Disposition: Home Condition: Stable Instructions: Chest Pain (ED) Additional Instructions: Please return to the emergency department if you develop severe and persistent chest pain, difficulty breathing, dizziness, leg swelling or if you are coughing up blood as these can be signs of a medical emergency. Please call your doctor for a follow up appointment to determine the need for further testing. Patient Language: Tajik Prescriptions: New naproxen 375 mg tablet 375 mg PO BID Qty: 14 0RF No Action Lexapro 10 mg DAILY albuterol sulfate [Proventil HFA] 90 mcg/actuation Hfa Aerosol Inhaler 2 puff inhalation QIDRT PRN (Reason: shortness of breath or wheezing) Qty: 6.7 0RF Follow-up/Referrals: Elle Frey, RN [Registered Nurse] - 1 Week UNKNOWN,DOCTOR [Primary Care Provider] - Quality HEART score for chest pain patients History: slightly suspicious ECG: normal Age: < or = to 45 years Risk factors: no risk factors known Troponin: < or = to 1x normal limit Heart score: 0
[2024-10-12 18:23] LABS: Troponin I < 0.012 ng/mL (0.000-0.034)
== END 2024-10-12 18:45 | disposition home or self-care (01) ==
PROVIDERS: Emergency Provider Emergency Medicine
DX: R07.89 Other chest pain (principal); F41.9 Anxiety disorder, unspecified; R73.03 Prediabetes; Z79.899 Other long term (current) drug therapy; R00.0 Tachycardia, unspecified; R94.31 Abnormal electrocardiogram [ECG] [EKG]
CPT/HCPCS: 36415; 71046; 80053; 83690; 84484; 85025; 85610; 85730; 93005; 99284; A9270

== ENCOUNTER 2024-11-06 05:43 | Emergency (ER) | payer BC, SELFPAY ==
[2024-11-06 05:46] VITALS: BP 155/105; PULSE 113; RESP 18; TEMP 36.6; O2SAT 98
--- NOTE | 2024-11-06 06:00 | PC.NURSE ---
spoke with patient and about recommendations from poison control, patient wishes to go home at this time since the recommended treatment is supportive care. ERP at bedside, agreeable to send patient home with supportive care.
--- NOTE | 2024-11-06 06:00 | PC.NURSE ---
called to [place] [facility] control at [phone], , spoke with Luis. Recommends just supportive care at this time.
--- OUTSIDE RECORDS SUMMARY | 2024-11-06 06:01 | XMS_ITS | Clinical Summary ---
Author Organization 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[employer] Gender Identity Not on file Sexual Orientation Not on file Plan of Treatment Health Maintenance Due Date Last Done Comments Annual Physical 02/14/1984 Hepatitis C 1999 DTaP, Tdap and Td Vaccines ( 1 - Tdap) 02/14/2000 Hepatitis B Vaccines (1 of 3 - 19+ 3-dose series) 02/14/2000 COVID-19 Vaccine (2023-2 5 season) 2023 HPV Vaccines Aged Out No longer eligi ble based on patient's age to complete this topic Meningococcal B Vaccine Aged Out No l onger eligible based on patient's age to complete this topic Meningococcal Vaccine Aged Out No ai deangelo eligible based on patient's age to complete this topic Pneumococcal Vaccine: Pediat rics (0 to 5 Years) and At-Risk Patients (6 to 49 Years) Aged Out No longer eligible b ased on patient's age to complete this topic RSV Immunizations Under 20 Months Aged Out No longer eligible based on patient's age to complete this topic Insurance [facility] Care Teams Microsoft Infrastructure Consultant Relationship Specialty Start Date End Date Caio Arias MD [address] [place] [id number] PCP - General FAMILY PRACTICE 05/21/16
--- NOTE | 2024-11-06 06:04 | ED_ITS ---
HPI - General Adult General Stated complaint: unspecified Source: other (girlfriend) Mode of arrival: ambulatory Limitations: no limitations History of Present Illness HPI narrative: 44 year old male is brought to the Emergency Department by girlfriend. Girlfriend is primary historian. States patient use a Rocket THC Gummie at 9 pm. Has not been acting right. Patient has a history of anxiety, and this is making him more prone. Uses THC gummies in past. Has not used this particular one in past. Onset (ago): hour(s) (8) Relieving factors: none Exacerbating factors: none Associated symptoms: confusion and other (anxiety) Treatments prior to arrival: none Related Data Home Medications ?Medication ?Instructions ?Recorded ?Confirmed ?Last Taken ?Type Lexapro 10 mg DAILY 03/20/21 03/21/21 Unknown History Allergies Allergy/AdvReac Type Severity Reaction Status Date / Time No Known Allergies Allergy Verified 11/06/24 05:59 Review of Systems Review of Systems: All systems reviewed & are unremarkable except as noted in HPI and below Constitutional: Constitutional: Reports as per HPI, Denies chills and Denies fever(s) Eyes: Eyes: Reports as per HPI ENT: Reports system reviewed and no additional complaints, except as documented Cardiovascular: Cardiovascular: Reports as per HPI and Denies chest pain Respiratory: Respiratory: Reports as per HPI and Denies dyspnea Gastrointestinal: Gastrointestinal: Reports as per HPI, Denies diarrhea, Denies nausea and Denies vomiting Genitourinary: Genitourinary: Reports no additional male genitourinary complaints Musculoskeletal: Musculoskeletal: Reports no additional musculoskeletal complaints Integumentary/Breasts: Skin/Breast: Reports system reviewed and no additional complaints, except as docu Neurologic: Reports system reviewed and no additional complaints, except as documented Psychiatric: Psychiatric: Reports no additional psychiatric complaints and Reports anxiety Endocrine: Endocrine: Reports no additional endocrine complaints Hematologic/Lymphatic: Hematologic/Lymphatic: Reports no additional h ematologic/lymphatic complaints Allergic/Immunologic: Allergic/Immunologic: Reports no additional allergic/immunologic complaints [facility] Past Medical History Medical History Prediabetes Family History Family History Other No significant family history Social History Social History Smoking status: Never smoker Alcohol intake: current Drinks per week: 2 Substance use: never Spiritual care concerns: No Exam Const: General: no acute distress Nutritional Appearance: obese Orientation/consciousness: patient oriented x3 Limitations: altered mental status (slow to respond) HENMT: Head: normal to inspection Ears: external ears normal Face/Nose/Sinus: Normal external nose present Face and sinus: normal facial exam Mouth: Yes Normal oral and palatal mucosa present Throat: posterior oropharynx normal Eyes: Pupils: Equal, round and reactive pupils present EOM: EOMs intact bilaterally Direct Ophthalmoscopy: no photophobia Neck: Neck: normal visual inspection Chest: Chest palpation & inspection: normal inspection of the chest Resp: Effort & Inspection: normal respiratory effort Auscultation: clear to auscultation bilaterally Cardio: Rate: regular rate Rhythm: regular rhythm Heart sounds: Murmur heart sound present GI: Inspection: non-distended GI Palp: Yes Soft to palpation and No Tenderness to palpation present (GI) Skin: General skin exam: normal color Rashes: no rashes Neuro: General: moves all extremities Cranial nerves: Yes Nystagmus not present Speech: normal speech Gait exam (Neuro): Normal gait present Other: slow to respond Extrem: General: normal to inspection and no clubbing, cyanosis or edema Course Vital Signs Vital signs: Vital Signs Temperature 36.6 C 11/06/24 05:46 Pulse Rate 113 H 11/06/24 05:46 Respiratory Rate 18 11/06/24 05:46 Blood Pressure 155/105 H 11/06/24 05:46 Pulse Oximetry 98 11/06/24 05:46 Oxygen Delivery Room Air 11/06/24 05:46 Temperature 36.6 C 11/06/24 05:46 Pulse Rate 113 H 11/06/24 05:46 Respiratory Rate 18 11/06/24 05:46 Blood Pressure 155/105 H 11/06/24 05:46 Pulse Oximetry 98 11/06/24 05:46 Oxygen Delivery Room Air 11/06/24 05:46 Medical Decision Making MDM Narrative Medical decision making narrative: 44 y/o male is brought to the ED by girlfriend. States patient took Rocket THC Gummie. Not acting right. History of anxiety and more prone to anxiety now. PE: slow to respond, but o/w no acute findings ([id number]) Poison Control contacted. Supportive care only Instructions Vital Signs Vital Signs: Vital Signs Temperature 36.6 C 11/06/24 05:46 Pulse Rate 113 H 11/06/24 05:46 Respiratory Rate 18 11/06/24 05:46 Blood Pressure 155/105 H 11/06/24 05:46 Pulse Oximetry 98 11/06/24 05:46 Oxygen Delivery Room Air 11/06/24 05:46 Temperature 36.6 C 11/06/24 05:46 Pulse Rate 113 H 11/06/24 05:46 Respiratory Rate 18 11/06/24 05:46 Blood Pressure 155/105 H 11/06/24 05:46 Pulse Oximetry 98 11/06/24 05:46 Oxygen Delivery Room Air 11/06/24 05:46 Discharge Plan Discharge Clinical Impression: Adverse drug effect Patient Disposition: Home Condition: Stable Instructions: Adverse Drug Reaction (ED) Additional Instructions: Discontinue use of gummie Benadryl 50 mg every 6 hours as needed for anxiety Follow up Primary Care Physician Patient Language: Georgian Prescriptions: No Action Lexapro 10 mg DAILY albuterol sulfate [Proventil HFA] 90 mcg/actuation Hfa Aerosol Inhaler 2 puff inhalation QIDRT PRN (Reason: shortness of breath or wheezing) Qty: 6.7 0RF naproxen 375 mg tablet 375 mg PO BID Qty: 14 0RF Follow-up/Referrals: José Migule Major MD [Primary Care Provider] - Time of Disposition: 06:18
[2024-11-06 06:25] VITALS: BP 146/98; PULSE 88; RESP 20; O2SAT 98
== END 2024-11-06 06:25 | disposition home or self-care (01) ==
PROVIDERS: Emergency Provider Emergency Medicine; PCP Family Medicine
DX: R41.0 Disorientation, unspecified (principal); T40.715A Adverse effect of cannabis, initial encounter
CPT/HCPCS: 99281